=== PATIENT | male | born 1950 | race Caucasian/White ===

== ENCOUNTER → 2023-04-22 08:52 | Outpatient (CLI) | payer MEDICARE, OTHER, SELFPAY ==
--- NOTE | 2023-04-22 | DI.ECHO.S_ITS ---
[place] [facility]---------+ [facility] +---------+ : : [address] : [place] : : : : [phone] : : : : Phone: [phone]+ Echocardiogram Report + + :Name: WEN WAHL Study Date: 04/22/2023 Height: 69 in : :[facility] ReadingLocation: Weight: 195 lb : : Gender: Male BSA: 2.0 m2 : :: 1950 Age: 72 yrs BP: 146/85 mmHg: :Reason For Study: AORTIC STENOSIS : :Ordering Physician: NITZA, : :SOUMYA Performed By: Sydnie Moody : :Referring: SOUMYA GODDARD : + + Interpretation Summary The ejection fraction is estimated to be 65-70%. Diastolic parameters suggest probable normal left ventricular diastolic function and normal filling pressures. The right ventricle is normal in size and function. There is moderate aortic stenosis. There is mild tricuspid regurgitation. The right ventricular systolic pressure is estimated to be at least 31 mmHg based on an estimated right atrial pressure of 3 mm Hg. Procedure: A two-dimensional transthoracic echocardiogram with color flow and Doppler was performed. The study quality was technically adequate. There is no prior echocardiogram noted for this patient. The patient was in sinus rhythm with heart rates between 62-67 bpm during the exam. Left Ventricle: The left ventricle is normal in size and wall thickness. The ejection fraction is estimated to be 65-70%. Diastolic parameters suggest probable normal left ventricular diastolic function and normal filling pressures. Right Ventricle: The right ventricle is normal in size and function. Atria: The left atrial size is normal. Right atrial size is normal. There is no Doppler evidence for an interatrial shunt. Mitral Valve: There is mild mitral annular calcification. The mitral valve is normal in structure and function. There is trace mitral regurgitation. Aortic Valve: The aortic valve is trileaflet. The aortic valve is moderately calcified. There is moderately reduced leaflet mobility. There is moderate aortic stenosis. The peak aortic velocity is 3.5 m/sec. The aortic valve mean gradient is 30 mmHg. The calculated aortic valve area is 1.3 cm2. No aortic regurgitation is present. Tricuspid Valve: The tricuspid valve is normal in structure and function. There is mild tricuspid regurgitation. The right ventricular systolic pressure is estimated to be at least 31 mmHg based on an estimated right atrial pressure of 3 mm Hg. Pulmonic Valve: The pulmonic valve leaflets are thin and pliable; valve motion is normal. There is trace pulmonic regurgitation. Great Vessels: The aortic root is normal size. The dimensions of the ascending aorta are normal. The IVC is of normal diameter and collapses greater than 50% with a sniff. This suggests a low right atrial pressure of 3 mm Hg. Pericardium/ Pleura There is no pericardial effusion. There is no pleural effusion. MMode/2D Measurements & Calculations LVIDd: 3.9 cm LVOT diam: 2.1 cm LVIDs: 2.7 cm Ao root diam: 3.5 cm FS: 32.3 % asc Aorta Diam: 3.8 cm IVSd: 0.85 cm Ao Arch Diam (Prox Trans): 3.5 cm LVPWd: 0.79 cm LV rowell. diameter/BSA (cm/m^2): 1.9 LV sys. diameter/BSA (cm/m^2): 1.3 LA A2 area: 23.3 cm2 RA long axis: 5.5 cm LA A4 area: 17.0 cm2 RA area: 17.3 cm2 LA length (vol): 5.6 cm RA vol: 45.8 ml LA vol: 59.7 ml RA : 22.4 ml/m2 LA vol index: 29.2 ml/m2 IVC diam: 1.6 cm RVD1 (basal): 3.5 cm RVD2 (mid): 3.0 cm TAPSE: 2.7 cm Doppler Measurements & Calculations Ao V2 max: 349.2 cm/sec LVOT Max Herman: 124.6 cm/sec Ao V2 mean: 246.0 cm/sec LV V1 max P.2 mmHg Ao max P.8 mmHg LV V1 VTI: 30.2 cm Ao mean P.3 mmHg DEYSI(I,D): 1.4 cm2 Ao V2 VTI: 76.5 cm DEYSI(V,D): 1.2 cm2 sev ratio: 0.39 DEYSI indexed to BSA (cm^2/m^2): 0.66 MV E max herman: 87.0 cm/sec TR max herman: 265.7 cm/sec MV A max herman: 63.6 cm/sec TR max P.2 mmHg MV E/A: 1.4 PA V2 max: 96.0 cm/sec Med Peak E' Herman: 9.6 cm/sec PA V2 mean: 70.9 cm/sec E/E' med: 9.0 PA mean P.2 mmHg Lat Peak E' Herman: 8.9 cm/sec PA pr(Accel): 39.6 mmHg E/E' lat: 9.7 E/e' average: 9.4 MV dec time: 0.28 sec SV(OT): 104.0 ml Reading Physician:05:07 PM
== END ==
LOC: ECHO 08:55
PROVIDERS: PCP Internal Medicine; Referring Provider Internal Medicine; Visit Provider Internal Medicine
DX: I08.3 Combined rheumatic disorders of mitral, aortic and tricuspid valves (principal)
CPT/HCPCS: 93306